=== PATIENT | female | born 1945 | race African-American/Black ===

== ENCOUNTER 2020-07-14 14:39 | Emergency (ER) | payer OTHER ==
[~2020-07-14] VITALS: Ht 162.6 cm; Wt 69.8 kg
[~2020-07-14 14:39] MED LIST: COUMADIN 2 MG TA2 M1; GARLIC OIL1 EAC1 PO; HYDROCHLOROTHIA25 M1 PO; IRON325; MULTIVITAMINS PO; NAPROSYN500 MG PO; NORCO 10-325 T1 EACH; NORVASC 5 MG TAB5 MG PO; OMEGA-31000 MG PO; PERCOCET 10-321 EACH; POTASSIUM CHLO10 ME1 PO; PREMARIN0.3 MG PO; ULTRAM 50MG TAB50 MG PO; VISTARIL 25 MG25 M1; VITAMIN D1000 UNI1 PO; VITAMIN E400 UNIT PO
[2020-07-14 16:38] LABS: HEMATOCRIT 34.5 % (37.0-47.0); HEMOGLOBIN 10.8 gm/dL (12.0-15.0); MCH 24.4 pg (26.0-34.0); MCHC 31.5 g/dL (28.0-37.0); MCV 77.4 fL (80.0-100.0); PLATELET COUNT 352 thou/uL (150-400); RBC 4.45 mil/uL (4.20-5.00); RDW 15.5 % (10.5-14.5); WBC 3.5 thou/uL (4.0-11.0)
[2020-07-14 16:41] LABS: ANION GAP 12 mmol/L (7-16); BUN 24 mg/dL (7-18); CHLORIDE 104 mmol/L (98-107); CO2 28 mmol/L (21-32); CREATININE 1.3 mg/dL (0.6-1.0); GLUCOSE 96 mg/dL (74-106); POTASSIUM 3.5 mmol/L (3.5-5.1); SODIUM 144 mmol/L (136-145)
[2020-07-14 16:51] LABS: ALBUMIN 3.4 g/dL (3.4-5.0); DIRECT BILIRUBIN 0.1 mg/dL (<0.1-0.2); SGOT 27 U/L (15-37); SGPT 25 U/L (14-59); TOTAL BILIRUBIN 0.5 mg/dL (0.2-1.0); TOTAL PROTEIN 7.2 g/dL (6.4-8.2); TROPONIN-I <0.06 ng/mL (<0.06)
[2020-07-14 17:08] LABS: URINE BLOOD NEGATIVE (Negative); URINE CLARITY CLEAR; URINE COLOR YELLOW; URINE GLUCOSE-RANDOM* NEGATIVE (Negative); URINE KETONES 1+ (Negative); URINE NITRITE-REFLEX NEGATIVE (Negative); URINE PROTEIN (DIPSTICK) NEGATIVE (Negative)
[2020-07-14 17:23] LABS: ICTOTEST (BILI CONFIRMATORY) Negative (Negative); URINE BILIRUBIN NEGATIVE (Negative); URINE LEUKOCYTES-REFLEX 1+ (Negative)
[2020-07-14 17:25] LABS: CASTS None Seen /LPF (None Seen); RENAL EPITHELIAL CELLS 4-10 Moderate /LPF (None Seen); SQUAMOUS 0-3 Few /LPF (0-3); URINE WBC-REFLEX 6-15 Few /HPF (0-5)
[2020-07-14 17:26] LABS: BACTERIA-REFLEX None Seen /HPF (None Seen); CRYSTALS None Seen /LPF (None Seen); URINE RBC 0-2 Rare /HPF (0-2)
[2020-07-14 17:32] LABS: ABSOLUTE NEUTROPHILS 1.9 thou/uL (1.4-8.2); ATYPICAL LYMPHS 1 %
[2020-07-14 17:34] LABS: ANISOCYTOSIS 1+
[2020-07-14 17:35] LABS: LARGE PLATELETS OCCASIONAL; POLYCHROMASIA OCCASIONAL
[2020-07-14 18:11] VITALS: BP 139/62
--- NOTE | 2020-07-15 08:52 | EKG ---
[facility] [address] ELECTROCARDIOGRAM REPORT Name: QUEEN Manuel NEWSOME Room #: [facility] [id number] Admission: 07/14/20 Attend Phys: Discharge: 07/14/20 Date of : 47 Report #: [id number] [facility] ED Test Date: 2020-07-14 Test Time: 15:33:33 Pat Name: QUEEN MERCEDEZ Department: Room: Gender: F Instrumentation Tech: SVETLANA : 1945 Requested By: Mabel Newman Order Number: [id number] MD: Antonio Prado Measurements Intervals [place] Rate: 66 P: 39 TX: 147 QRS: -24 QRSD: 100 T: -48 QT: 400 QTc: 420 Interpretive Statements Pacemaker spikes or artifacts Sinus rhythm RSR' in V1 or V2, right VCD or RVH Left ventricular hypertrophy Nonspecific T abnormalities, inferior leads No previous ECG available for comparison Electronically Signed On 07-15-2020 8:52:22 [employer] by Antonio Prado [email or web address] <ELECTRONICALLY SIGNED> By: Antonio Prado MD, [facility] 07/15/20 [id number] Antonio Prado MD, FACC /EPI
== END 2020-07-14 18:14 | disposition home or self-care (01) ==
LOC: ER 14:39
PROVIDERS: Emergency Medicine
DX: J06.9 Acute upper respiratory infection, unspecified (principal); I10 Essential (primary) hypertension; Z90.711 Acquired absence of uterus with remaining cervical stump; Z98.890 Other specified postprocedural states; Z79.899 Other long term (current) drug therapy; Z79.01 Long term (current) use of anticoagulants; Z88.5 Allergy status to narcotic agent; Z20.828 Contact with and (suspected) exposure to other viral communicable diseases